=== PATIENT | female | born 1980 | race Caucasian/White ===

== ENCOUNTER 2016-09-25 17:38 | Inpatient (IN) | payer OTHER ==
[~2016-09-25] VITALS: Ht 154.9 cm; Wt 77.0 kg
[2016-09-25] MEDS ORDERED: DIPHTH/TETANUS/ACEL PERTUSSIS (BOOSTER) 0.5 ML VIAL/PFS IM ONE ×2 (17:46→18:31)
[2016-09-25] MEDS ORDERED: ONDANSETRON HCL 4 MG/2 ML VIAL ONE (17:46)
[2016-09-25] MEDS ORDERED: MORPHINE SULFATE 8 MG/ML INJ ONE ×2 (17:46→18:28)
[2016-09-25 18:04] VITALS: O2SAT 100
[2016-09-25] MEDS ORDERED: IOHEXOL 350 MG/ML 10 ML VIAL (for RAD DIAG) IV ONE (18:09)
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
[2016-09-25 18:16] LABS: I-STAT POTASSIUM 3.3 MMOL/L (3.5-4.9)
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
[2016-09-25 18:33] LABS: PROTHROMBIN TIME - PATIENT 11.3 SEC (9.8-11.6)
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
[2016-09-25 18:37] LABS: AUTOMATED NEUTROPHIL # 9.9 TH/MM3 (1.8-7.7); BASOPHIL % 0.2 % (0.0-2.0); EOSINOPHIL % 0.3 % (0.0-4.0); HEMATOCRIT 34.6 % (35.0-46.0); HEMO FLAGS DIFF FINAL; LYMPH % 13.7 % (9.0-44.0); LYMPHOCYTE # 1.7 TH/MM3 (1.0-4.8); MEAN CELL VOLUME 85.9 FL (80.0-100.0); MEAN CORPUSCULAR HEMOGLOBIN 28.3 PG (27.0-34.0); MONO % 4.1 % (0.0-8.0); NEUT % 81.7 % (16.0-70.0); PLATELET COUNT 266 TH/MM3 (150-450); RED BLOOD COUNT 4.03 MIL/MM3 (4.00-5.30); RED CELL DISTRIBUTION WIDTH 13.6 % (11.6-17.2); WHITE BLOOD COUNT 12.1 TH/MM3 (4.0-11.0)
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
[2016-09-25] MEDS ORDERED: CHLORHEXIDINE GLUCONATE 2 % 1 PACK (2 CLOTHS) TOP PRN ×2 (18:45→22:00)
[2016-09-25] MEDS ORDERED: ONDANSETRON HCL 4 MG/2 ML VIAL IV ONE (18:45)
[2016-09-25] MEDS ORDERED: MISCELLANEOUS NURSING INFORMATION XX SCH ×2 (18:45→22:00)
[2016-09-25] MEDS ORDERED: SODIUM CHLORIDE 0.9% FLUSH 5 ML FLUSH IV FLUSH PRN ×2 (18:45→22:00)
[2016-09-25] MEDS ORDERED: ONDANSETRON HCL 4 MG/2 ML VIAL IV PRN ×2 (18:45→22:00)
[2016-09-25] MEDS ORDERED: MORPHINE SULFATE 4 MG/ML INJ IV ONE (18:45)
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
[2016-09-25] MEDS: HYDROmorphone HCL PF 1 MG/ML VIAL IV PRN (19:24)
[2016-09-25] MEDS: SODIUM CHLOR 0.9% 1000 ML INJ 1,000 ML IV SCH (19:24)
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
[2016-09-25] MEDS ORDERED: cefTRIAXone INJ 1,000 MG in SODIUM CHLORIDE 0.9% INJ 100 ML IV ONE (19:30)
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
[2016-09-25 20:15] VITALS: BP 136/69; PULSE 102; RESP 16; TEMP 98.9; O2SAT 100
[2016-09-25] MEDS: SODIUM CHLORIDE 0.9% FLUSH 5 ML FLUSH IV FLUSH SCH (21:00)
[2016-09-25] MEDS ORDERED: NITROGLYCERIN 2% OINT 1 GM PACKET TOPICAL PRN (21:45)
[2016-09-25] MEDS ORDERED: hydrALAZINE HCL 20 MG/ML VIAL IV PUSH PRN (21:45)
[2016-09-25] MEDS ORDERED: LABETALOL HCL 100 MG/20 ML VIAL IV PUSH PRN (21:45)
[2016-09-25 21:46] VITALS: O2SAT 100
[2016-09-25] MEDS ORDERED: AMIT25TA9 PO (21:54)
[2016-09-25 22:00] VITALS: PULSE 110
[2016-09-25] MEDS ORDERED: POTASSIUM PHOSPHATE INJ 30 MMOL in SODIUM CHLOR 0.9% 250 ML INJ 250 ML IV PRN (22:00)
[2016-09-25] MEDS ORDERED: levETIRAcetam INJ 500 MG in SODIUM CHLORIDE 0.9% INJ 100 ML IV ONE (22:00)
[2016-09-25] MEDS ORDERED: RESP: ALBUTEROL 2.5 MG/IPRATROPIUM 0.5 MG NEB (PRN) INH (22:00)
[2016-09-25] MEDS ORDERED: MAGNESIUM SULFATE INJ 2 GM in SODIUM CHLORIDE 0.9% INJ 96 ML IV PRN (22:00)
[2016-09-25] MEDS ORDERED: POTASSIUM PHOSPHATE MONOBASIC 500 MG TAB PO/TUBE PRN (22:00)
[2016-09-25] MEDS ORDERED: POTASSIUM CHLOR 20 MEQ PREMIX 100 ML IV PRN ×2 (22:00)
[2016-09-25] MEDS ORDERED: MAGNESIUM OXIDE 400 MG TAB PO PRN (22:00)
[2016-09-25] MEDS ORDERED: MAGNESIUM SULFATE INJ 4 GM in SODIUM CHLORIDE 0.9% INJ 92 ML IV PRN (22:00)
[2016-09-25] MEDS ORDERED: POTASSIUM CHLOR 40 MEQ PREMIX 100 ML IV PRN ×2 (22:00)
[2016-09-25] MEDS ORDERED: SODIUM PHOSPHATE INJ 30 MMOL in SODIUM CHLOR 0.9% 250 ML INJ 240 ML IV PRN (22:00)
[2016-09-25] MEDS ORDERED: POTASSIUM PHOSPHATE MONOBASIC 500 MG TAB PO PRN (22:00)
[2016-09-25] MEDS: ACETAMINOPHEN 325 MG TAB PO PRN (22:11)
[2016-09-25] MEDS: AMPICILLIN-SULBACTAM INJ 3 GM in SODIUM CHLORIDE 0.9% INJ 100 ML IV SCH (22:12)
[2016-09-26] VITALS (11 sets, daily range): BP systolic 137–168; BP diastolic 64–74; PULSE 73–114; RESP 12–30; TEMP 98.5–99.5; O2SAT 97–100
[2016-09-26] MEDS: AMPICILLIN-SULBACTAM INJ 3 GM in SODIUM CHLORIDE 0.9% INJ 100 ML IV SCH ×4 (03:09→20:37)
[2016-09-26] MEDS: SODIUM CHLOR 0.9% 1000 ML INJ 1,000 ML IV SCH ×2 (03:09→18:23)
[2016-09-26] MEDS: CHLORHEXIDINE GLUCONATE 2 % 1 PACK (2 CLOTHS) TOP SCH (03:09)
[2016-09-26] MEDS: ACETAMINOPHEN 325 MG TAB PO PRN ×3 (03:10→20:37)
[2016-09-26] MEDS ORDERED: CHLORHEXIDINE GLUCONATE 2 % 1 PACK (2 CLOTHS) TOP SCH (04:00)
[2016-09-26 04:20] LABS: AUTOMATED NEUTROPHIL # 7.4 TH/MM3 (1.8-7.7); BASOPHIL % 0.1 % (0.0-2.0); HEMATOCRIT 32.9 % (35.0-46.0); HEMO FLAGS DIFF FINAL; LYMPH % 8.5 % (9.0-44.0); LYMPHOCYTE # 0.7 TH/MM3 (1.0-4.8); MEAN CORPUSCULAR HEMOGLOBIN 28.9 PG (27.0-34.0); NEUT % 87.4 % (16.0-70.0); PLATELET COUNT 248 TH/MM3 (150-450); RED BLOOD COUNT 3.87 MIL/MM3 (4.00-5.30); RED CELL DISTRIBUTION WIDTH 13.8 % (11.6-17.2); WHITE BLOOD COUNT 8.5 TH/MM3 (4.0-11.0)
[2016-09-26] MEDS ORDERED: ATROPINE SULFATE 1 MG/10 ML SYRINGE ONE (05:17)
[2016-09-26] MEDS ORDERED: LIDOCAINE HCL 2% 100 MG/5 ML SYRINGE ONE (05:17)
[2016-09-26] MEDS ORDERED: EPINEPHrine HCL (1:10,000) 1 MG/10 ML SYRINGE ONE (05:17)
[2016-09-26] MEDS: HYDROmorphone HCL PF 1 MG/ML VIAL IV PRN ×3 (05:20→13:59)
[2016-09-26 05:21] LABS: BICARBONATE 19.6 MEQ/L (21.0-32.0); MAGNESIUM 1.9 MG/DL (1.5-2.5); POTASSIUM 3.9 MEQ/L (3.5-5.1)
--- NOTE | 2016-09-26 06:32 | RADRPT ---
EXAM DATE/TIME: 09/26/2016 06:08 [facility] COMPARISON: No previous studies available for comparison. INDICATIONS : Follow up bleed. RADIATION DOSE: 58.19 CTDIvol (mGy) MEDICAL HISTORY : None SURGICAL HISTORY : None. ENCOUNTER: Subsequent ACUITY: 1 day PAIN SCALE: 0/10 LOCATION: cranial TECHNIQUE: Multiple contiguous axial images were obtained of the head. Using automated exposure control and adj ustment of the mA and/or kV according to patient size, radiation dose was kept as low as reasonably a chievable to obtain optimal diagnostic quality images. FINDINGS: Previously described small subdural hematoma in the middle cranial fossa has focally increased to abo ut 1.5 cm in thickness with mild localized mass effect. Subarachnoid hemorrhage is also noted in the left convexity especially around the sylvian fissure. Fluid in left maxillary sinus and sphenoid sinu s as well as posterior ethmoids. No mass effect or midline shift in the level of the septum pellucidu m. CONCLUSION: 1. Focal increase in subdural hematoma in the left middle cranial fossa to about 1.5 cm in thickness. Mild localized mass effect. No midline shift. Subarachnoid hemorrhage remains over the left convexit y, especially in the sylvian fissure region. Left calvarial fracture and facial fractures unchanged. José Miguel Herrera MD on September 26, 2016 at 6:28 Board Certified Radiologist. This report was verified electronically.
[2016-09-26] MEDS: ARTIFICIAL TEARS OPTH SOLN 15 ML BTL EACH EYE SCH ×2 (08:15→13:59)
[2016-09-26] MEDS: levETIRAcetam INJ 500 MG in SODIUM CHLORIDE 0.9% INJ 100 ML IV SCH ×2 (08:15→21:00)
[2016-09-26] MEDS: LACTULOSE SYRUP 20 GM/30 ML CUP PO SCH (08:35)
[2016-09-26] MEDS: SODIUM CHLORIDE 0.9% FLUSH 5 ML FLUSH IV FLUSH SCH ×4 (09:00→20:38)
[2016-09-26] MEDS: DOCUSATE SODIUM 100 MG CAP PO SCH ×2 (09:00→20:37)
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
[2016-09-26] MEDS: THIAMINE INJ 100 MG in SODIUM CHLORIDE 0.9% INJ 100 ML IV SCH (11:00)
[2016-09-26] MEDS ORDERED: ONDANSETRON HCL 4 MG/2 ML VIAL IV PUSH ONE (12:00)
[2016-09-26] MEDS ORDERED: NEOSTIGMINE 3 MG/3 ML SYR IV ONE (12:00)
[2016-09-26] MEDS ORDERED: LACTATED RINGER'S 1000 ML INJ 1,000 ML IV ONE (12:00)
[2016-09-26] MEDS ORDERED: PROPOFOL 200 MG/20 ML AMP IV ONE (12:00)
--- NOTE | 2016-09-26 14:17 | OTSOAPIP ---
RN REQUESTS OCCUPATIONAL THERAPY TO HOLD DUE TO ELEVATED BP. SHE IS ALSO SCHEDULED FOR SURGERY TODAY. WILL REATTEMPT TOMORROW. Therapist: Brisa Gramajo OTR/L Signature on file
--- NOTE | 2016-09-26 15:32 | PD.ORT.PN ---
Subjective Subjective Remarks Left humerus pain, headache and mild right forearm pain Objective Vitals Vital Signs Date Time Temp Pulse Resp B/P Pulse Ox O2 Delivery O2 Flow Rate FiO2 09/26/16 14:00 76 09/26/16 12:00 98.6 73 12 147/68 98 09/26/16 12:00 73 09/26/16 10:47 98 Nasal Cannula 2.00 09/26/16 10:00 108 09/26/16 08:00 98.9 108 30 168/69 99 09/26/16 08:00 100 Room Air 09/26/16 08:00 108 09/26/16 06:00 92 09/26/16 04:00 99.0 100 21 137/64 97 09/26/16 04:00 100 09/26/16 02:00 110 09/26/16 00:00 99.5 114 21 151/71 100 09/26/16 00:00 114 09/25/16 22:00 110 09/25/16 21:46 100 Nasal Cannula 3.00 09/25/16 20:15 98.9 102 16 136/69 100 09/25/16 18:23 100 Nasal Cannula 2 09/25/16 18:04 100 3.00 I/O 09/25/16 09/25/16 09/25/16 09/26/16 09/26/16 09/26/16 07:00 15:00 23:00 07:00 15:00 23:00 Intake Total 1254 ml 1012 ml 750 ml Output Total 925 ml 600 ml 350 ml Balance 329 ml 412 ml 400 ml Intake Oral 40 ml IV Total 1254 ml 972 ml 750 ml Output Urine Total 925 ml 600 ml 350 ml # Bowel Movements 0 0 0 Result Diagram: 09/26/16 0334 09/26/16 0334 Other Results Laboratory Tests Test 09/25/16 17:40 Prothrombin Time 11.3 SEC (9.8-11.6) Prothromb Time International 1.0 RATIO Ratio Imaging Last [address] 09/26/16 0600 Signed Impressions: Service Date/Time: Monday, September 26, 2016 06:08 - CONCLUSION: 1. Focal increase in subdural hematoma in the left middle cranial fossa to about 1.5 cm in thickness. Mild localized mass effect. No midline shift. Subarachnoid hemorrhage remains over the left convexity, especially in the sylvian fissure region. Left calvarial fracture and facial fractures unchanged. José Miguel Herrera MD Pelvis X-Ray [id number] Signed Impressions: Service Date/Time: Sunday, September 25, 2016 17:32 - CONCLUSION: No acute fracture. Aldo Paulino MD Head CT [id number] Signed Impressions: Service Date/Time: Sunday, September 25, 2016 18:01 - CONCLUSION: 1. Small subdural hematoma along the left anterior temporal bone with small amount of gas. 2. Evidence of facial bone fractures with intraorbital emphysema on the left. There are findings that are of concern for an orbital floor fracture. 3. Subtle temporal bone fracture and left zygomatic fracture. Danilo Tello MD Chest X-Ray [id number] Signed Impressions: Service Date/Time: Sunday, September 25, 2016 17:32 - CONCLUSION: Midshaft ulnar fracture. lAdo Paulino MD Chest CT [id number] Signed Impressions: Service Date/Time: Sunday, September 25, 2016 18:08 - CONCLUSION: 1. No acute thoracic injury. 2. Splenic laceration with hemoperitoneum. 3. Large right thyroid nodule. Aldo Paulino MD Cervical Spine CT [id number] Signed Impressions: Service Date/Time: Sunday, September 25, 2016 18:01 - CONCLUSION: No fracture subluxation. Right thyroid nodule. Aldo Paulino MD Abdomen/Pelvis CT [id number] Signed Impressions: Service Date/Time: Sunday, September 25, 2016 18:08 - CONCLUSION: 1. Splenic laceration with small amount of hemoperitoneum. No extravasation of contrast to suggest active hemorrhage. Aldo Paulino MD Objective Remarks full consult dictated Assessment & Plan Problem List: (1) Left humeral fracture (2) Fracture of right ulna (3) Subdural hemorrhage Assessment and Plan Options of treatment were discussed for both the lwft ulna and right humerus Based on bone alignment and both upper extremity involvement, recommend ORIF left humerus Risks and benefits reviewed Informed consent was obtained Wai Pulido MD Sep 26, 2016 15:32
[2016-09-26] MEDS ORDERED: ceFAZolin 2 GM PREMIX 50 ML ONE (15:39)
[2016-09-26] MEDS ORDERED: GENTAMICIN SULFATE 80 MG/2 ML VIAL ONE (15:39)
[2016-09-26] MEDS ORDERED: fentaNYL CITRATE 250 MCG/5 ML AMP ONE ×2 (15:40→18:07)
[2016-09-26] MEDS ORDERED: MIDAZOLAM HCL 2 MG/2 ML VIAL ONE ×2 (15:40→18:07)
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
[2016-09-26] MEDS ORDERED: NALOXONE HCL 0.4 MG/ML AMP IV PRN (17:45)
[2016-09-26] MEDS ORDERED: SODIUM CHLORIDE 0.9% FLUSH 5 ML FLUSH IVF PRN (17:45)
[2016-09-26] MEDS ORDERED: diphenhydrAMINE HCL 25 MG CAP PO PRN (17:45)
[2016-09-26] MEDS ORDERED: Post-op Orders (for Pharmacy) MISC XX ONE (17:45)
[2016-09-26] MEDS ORDERED: MISCELLANEOUS PHARMACY INFORMATION XX ONE (17:45)
[2016-09-26] MEDS ORDERED: MISCELLANEOUS NURSING INFORMATION XX PRN (17:45)
--- NOTE | 2016-09-26 17:51 | PD.OP ---
Operative Report Preoperative Diagnosis: (1) Fracture of shaft of left humerus Postoperative Diagnosis: (1) Fracture of shaft of left humerus Procedure: Left Humerus ORIF with synthes 10 hole 3.5 plate Anesthesia: General Surgeon: Wai Pulido MD Screw Eye Assembler(s): Marko JAMES Operation and Findings: see dictation Wai Pulido MD Sep 26, 2016 17:51
[2016-09-26] MEDS ORDERED: *HYDROmorphone PF 1 MG VIAL PERIprocedural Use ONLY ONE (18:01)
--- NOTE | 2016-09-26 18:01 | RADRPT ---
EXAM DATE/TIME: 09/26/2016 17:07 [facility] COMPARISON: HUMERUS LEFT (MIN 2VWS), September 25, 2016, 17:32. INDICATIONS : Open reduction. Left humeral fracture. MEDICAL HISTORY : None. SURGICAL HISTORY : None. ENCOUNTER: Subsequent ACUITY: 2 days PAIN SCORE: Non-responsive. LOCATION: Left upper extremity FINDINGS: Multiple coned down views of the left humerus were obtained using a matrix camera and demonstrate int erval placement of a screw plate fixation device transfixing the mid humeral fracture. The fracture f ragments are in anatomic alignment. CONCLUSION: Status post open rigid internal fixation. Danilo Tello MD on September 26, 2016 at 17:59 Board Certified Radiologist. This report was verified electronically.
[2016-09-26] MEDS ORDERED: MORPHINE SULFATE 4 MG/ML INJ ONE (18:07)
[2016-09-26] MEDS: HYDROmorphone HCL PCA 6 MG/30 ML IV SCH (18:21)
[2016-09-26] MEDS: FAMOTIDINE 20 MG TAB PO SCH (20:37)
[2016-09-26] MEDS: MAGNESIUM HYDROXIDE SUSP 30 ML CUP PO SCH (20:37)
[2016-09-26] MEDS ORDERED: SODIUM CHLORIDE 0.9% FLUSH 5 ML FLUSH IVF SCH (21:00)
[2016-09-26] MEDS: PCA - TOTAL MG DILAUDID DELIVERED PER SHIFT OTHER SCH (22:00)
[2016-09-27] VITALS (11 sets, daily range): BP systolic 138–174; BP diastolic 64–79; PULSE 66–116; RESP 12–23; TEMP 96.6–98.6; O2SAT 93–100
[2016-09-27] MEDS: HYDROmorphone HCL PCA 6 MG/30 ML IV SCH ×2 (00:09→09:08)
[2016-09-27] MEDS: AMPICILLIN-SULBACTAM INJ 3 GM in SODIUM CHLORIDE 0.9% INJ 100 ML IV SCH ×4 (03:30→15:16)
[2016-09-27] MEDS: SODIUM CHLOR 0.9% 1000 ML INJ 1,000 ML IV SCH (03:30)
[2016-09-27] MEDS: CHLORHEXIDINE GLUCONATE 2 % 1 PACK (2 CLOTHS) TOP SCH (03:31)
[2016-09-27] MEDS ORDERED: EPINEPHrine HCL (1:10,000) 1 MG/10 ML SYRINGE ONE (05:31)
[2016-09-27] MEDS ORDERED: LIDOCAINE HCL 2% 100 MG/5 ML SYRINGE ONE (05:32)
[2016-09-27] MEDS ORDERED: ATROPINE SULFATE 1 MG/10 ML SYRINGE ONE (05:32)
--- NOTE | 2016-09-27 05:51 | RADRPT ---
EXAM DATE/TIME: 09/27/2016 05:35 [facility] COMPARISON: CT BRAIN W/O CONTRAST, September 26, 2016, 6:08. INDICATIONS : Follow up bleed. RADIATION DOSE: 56.35 CTDIvol (mGy) MEDICAL HISTORY : Non-responsive. SURGICAL HISTORY : Non-responsive. ENCOUNTER: Subsequent ACUITY: 2 days PAIN SCALE: Non-responsive LOCATION: cranial TECHNIQUE: Multiple contiguous axial images were obtained of the head. Using automated exposure control and adj ustment of the mA and/or kV according to patient size, radiation dose was kept as low as reasonably a chievable to obtain optimal diagnostic quality images. FINDINGS: There is no evidence for acute infarction. The left middle cranial fossa, there is a hyperdense extra -axial biconvex hematoma measuring 1.6 x 2 cm in AP and transverse dimension, not significantly argueta ed, with a small amount of adjacent subdural hemorrhage and subarachnoid hemorrhage in the region of the sylvian fissure. There is a left temporal skull fracture with a tiny locule of pneumocephalus at the site of the hematoma which is felt to represent an epidural hematoma. There is also a nondisplace d left zygomatic arch fracture, air fluid level in the left maxillary sinus, sphenoid sinuses and eth moid air cells. CONCLUSION: Left temporal skull fracture, with underlying epidural hematoma unchanged and adjacent subarachnoid a nd subdural hemorrhage. Left zygomatic arch fracture. Twin Sanchez MD on September 27, 2016 at 5:47 Board Certified Radiologist. This report was verified electronically.
[2016-09-27] MEDS: PCA - TOTAL MG DILAUDID DELIVERED PER SHIFT OTHER SCH (06:00)
[2016-09-27 07:00] LABS: HEMATOCRIT 29.7 % (35.0-46.0); MEAN CELL VOLUME 86.6 FL (80.0-100.0); MEAN CORPUSCULAR HGB CONC 33.5 % (32.0-36.0); PLATELET COUNT 178 TH/MM3 (150-450); RED BLOOD COUNT 3.43 MIL/MM3 (4.00-5.30); RED CELL DISTRIBUTION WIDTH 13.8 % (11.6-17.2); REVIEW FLAG FINAL; WHITE BLOOD COUNT 8.5 TH/MM3 (4.0-11.0)
[2016-09-27 07:22] LABS: BICARBONATE 22.8 MEQ/L (21.0-32.0); POTASSIUM 4.1 MEQ/L (3.5-5.1)
[2016-09-27 07:31] LABS: FREE T4 1.51 NG/DL (0.76-1.46)
[2016-09-27 07:44] LABS: CALCIUM-PROTEIN CORRECTED 7.9 MG/DL (8.5-10.1)
[2016-09-27] MEDS: HYDROmorphone HCL PF 1 MG/ML VIAL IV PRN ×2 (07:48→11:35)
[2016-09-27] MEDS: ACETAMINOPHEN 325 MG TAB PO PRN ×3 (07:49→21:37)
[2016-09-27] MEDS ORDERED: RESP: ALBUTEROL 0.63 MG/3 ML NEB (PRN) NEB (08:00)
[2016-09-27] MEDS: LACTULOSE SYRUP 20 GM/30 ML CUP PO SCH (08:07)
[2016-09-27] MEDS: DOCUSATE SODIUM 100 MG CAP PO SCH ×2 (08:07→21:38)
[2016-09-27] MEDS: levETIRAcetam INJ 500 MG in SODIUM CHLORIDE 0.9% INJ 100 ML IV SCH (08:08)
[2016-09-27] MEDS: THIAMINE INJ 100 MG in SODIUM CHLORIDE 0.9% INJ 100 ML IV SCH (08:08)
[2016-09-27] MEDS: SODIUM CHLORIDE 0.9% FLUSH 5 ML FLUSH IV FLUSH SCH ×3 (08:08→21:00)
[2016-09-27] MEDS ORDERED: AMITRIPTYLINE HCL 25 MG TAB PO PRN (08:15)
[2016-09-27] MEDS: POLYETHYLENE GLYCOL 17 GM PKG PO SCH (09:00)
[2016-09-27] MEDS: ARTIFICIAL TEARS OPTH SOLN 15 ML BTL EACH EYE SCH ×3 (09:00→17:35)
--- NOTE | 2016-09-27 09:01 | RADRPT ---
EXAM DATE/TIME: 09/27/2016 08:11 [facility] COMPARISON: CT THORAX W CONTRAST, September 25, 2016, 18:08. CHEST SINGLE AP, September 25, 2016, 17:32. CHEST SINGLE A P, September 25, 2016, 17:32. INDICATIONS : Shortness of breath. MEDICAL HISTORY : None. SURGICAL HISTORY : None. ENCOUNTER: Subsequent ACUITY: 3 days PAIN SCORE: 8/10 LOCATION: Bilateral chest FINDINGS: There is mild left base contusion or atelectasis. Right lung is grossly clear. There is no definite e vidence of hemothorax or pneumothorax. Cardiac contours are stable. There has been plate fixation of the visualized left uterus. CONCLUSION: Mild left base contusion or atelectasis Manuel Manning MD on September 27, 2016 at 8:55 Board Certified Radiologist. This report was verified electronically.
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
[2016-09-27] MEDS ORDERED: MORPHINE SULFATE 4 MG/ML INJ IV PRN (13:00)
[2016-09-27] MEDS ORDERED: oxyCODONE/ACETAMINOPHEN 5 MG/325 MG TAB PO PRN (13:00)
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
[2016-09-27 15:17] LABS: HEMATOCRIT 31.4 % (35.0-46.0); REVIEW FLAG FINAL
--- NOTE | 2016-09-27 19:30 | PD.ORT.PN ---
Subjective Subjective Remarks Patient c/o left arm pain. Denies pain to right arm. Family at bedside. Objective Vitals Vital Signs Date Time Temp Pulse Resp B/P Pulse Ox O2 Delivery O2 Flow Rate FiO2 09/27/16 18:00 96.6 108 19 148/73 96 09/27/16 17:14 20 09/27/16 17:11 20 09/27/16 16:00 98.3 88 20 144/75 95 09/27/16 16:00 88 09/27/16 14:20 25 09/27/16 12:00 98.2 84 22 149/64 96 09/27/16 12:00 84 09/27/16 10:00 98 09/27/16 09:38 22 09/27/16 09:08 25 09/27/16 09:06 93 21 09/27/16 08:00 80 09/27/16 08:00 98.3 82 23 153/72 99 09/27/16 07:00 95 Room Air 09/27/16 06:00 66 09/27/16 04:00 98.6 84 12 144/71 100 09/27/16 04:00 84 09/27/16 02:00 74 09/27/16 00:00 98.6 68 16 138/65 98 09/27/16 00:00 68 09/26/16 22:00 82 09/26/16 20:44 98 Nasal Cannula 3.00 09/26/16 20:00 98.5 102 20 151/74 100 09/26/16 20:00 102 I/O 09/26/16 09/26/16 09/26/16 09/27/16 09/27/16 09/27/16 06:59 14:59 22:59 06:59 14:59 22:59 Intake Total 1012 ml 750 ml 1679 ml 1023 ml 1252 ml Output Total 600 ml 350 ml 990 ml 350 ml 500 ml Balance 412 ml 400 ml 689 ml 673 ml 752 ml Intake Oral 40 ml 250 ml 300 ml 600 ml IV Total 972 ml 750 ml 429 ml 723 ml 652 ml Other 1000 ml Output Urine Total 600 ml 350 ml 940 ml 350 ml 500 ml Estimated Blood Loss 50 ml # Bowel Movements 0 0 0 0 0 Result Diagram: 09/27/16 1430 09/27/16 0620 Imaging Last [address] 09/26/16 0600 Signed Impressions: Service Date/Time: Monday, September 26, 2016 06:08 - CONCLUSION: 1. Focal increase in subdural hematoma in the left middle cranial fossa to about 1.5 cm in thickness. Mild localized mass effect. No midline shift. Subarachnoid hemorrhage remains over the left convexity, especially in the sylvian fissure region. Left calvarial fracture and facial fractures unchanged. José Miguel Herrera MD Pelvis X-Ray 09/25/161746 Signed Impressions: Service Date/Time: Sunday, September 25, 2016 17:32 - CONCLUSION: No acute fracture. Aldo Paulino MD Head CT [id number]/161746 Signed Impressions: Service Date/Time: Sunday, September 25, 2016 18:01 - CONCLUSION: 1. Small subdural hematoma along the left anterior temporal bone with small amount of gas. 2. Evidence of facial bone fractures with intraorbital emphysema on the left. There are findings that are of concern for an orbital floor fracture. 3. Subtle temporal bone fracture and left zygomatic fracture. Danilo Tello MD Chest X-Ray [id number]/25/161746 Signed Impressions: Service Date/Time: Sunday, September 25, 2016 17:32 - CONCLUSION: Midshaft ulnar fracture. Aldo Paulino MD Chest CT 09/25/161746 Signed Impressions: Service Date/Time: Sunday, September 25, 2016 18:08 - CONCLUSION: 1. No acute thoracic injury. 2. Splenic laceration with hemoperitoneum. 3. Large right thyroid nodule. Aldo Paulino MD Cervical Spine CT 09/25/161746 Signed Impressions: Service Date/Time: Sunday, September 25, 2016 18:01 - CONCLUSION: No fracture subluxation. Right thyroid nodule. Aldo Paulino MD Abdomen/Pelvis CT 09/25/161746 Signed Impressions: Service Date/Time: Sunday, September 25, 2016 18:08 - CONCLUSION: 1. Splenic laceration with small amount of hemoperitoneum. No extravasation of contrast to suggest active hemorrhage. Aldo Paulino MD Objective Remarks Left arm dressing C/D/I sling in place 2+ radial pulse good movement of fingers + sensation Right arm splint in place 2+ radial pulse good movement of fingers + sensation Assessment & Plan Problem List: (1) Left humeral fracture (2) Fracture of right ulna (3) Subdural hemorrhage Assessment and Plan POD #1 ORIF of left humerus PLAN: Continue nonoperative management to right ulna fracture. Pain management Physical therapy - Non weight bearing to [place], Active assistive ROM D/C Planning - anticipating home Monitor Marko Duran Sep 27, 2016 19:30
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
[2016-09-27] MEDS ORDERED: levETIRAcetam 500 MG TAB PO SCH (21:00)
[2016-09-27] MEDS: FAMOTIDINE 20 MG TAB PO SCH (21:38)
[2016-09-27] MEDS: MAGNESIUM HYDROXIDE SUSP 30 ML CUP PO SCH (21:38)
[2016-09-27] MEDS: levETIRAcetam 500 MG TAB PO SCH (21:46)
[2016-09-27] MEDS: AMOXICILLIN/CLAVULANATE K 500 MG TAB PO SCH (23:25)
[2016-09-27] MEDS: oxyCODONE/ACETAMINOPHEN 5 MG/325 MG TAB PO PRN (23:25)
[2016-09-28] VITALS: BP 143/70; PULSE 102; RESP 20; TEMP 98.2; O2SAT 96
[2016-09-28] MEDS: CHLORHEXIDINE GLUCONATE 2 % 1 PACK (2 CLOTHS) TOP SCH (03:29)
[2016-09-28] MEDS: oxyCODONE/ACETAMINOPHEN 5 MG/325 MG TAB PO PRN ×5 (03:42→22:29)
[2016-09-28 04:00] VITALS: BP 146/70; PULSE 106; RESP 20; TEMP 96.1; O2SAT 95
[2016-09-28 05:16] LABS: BASOPHIL % 0.2 % (0.0-2.0); EOSINOPHIL # 0.1 TH/MM3 (0-0.4); EOSINOPHIL % 1.3 % (0.0-4.0); HEMATOCRIT 31.5 % (35.0-46.0); HEMO FLAGS DIFF FINAL; LYMPH % 36.1 % (9.0-44.0); LYMPHOCYTE # 3.2 TH/MM3 (1.0-4.8); MEAN CORPUSCULAR HEMOGLOBIN 29.6 PG (27.0-34.0); MEAN CORPUSCULAR HGB CONC 34.4 % (32.0-36.0); MONO % 5.4 % (0.0-8.0); PLATELET COUNT 164 TH/MM3 (150-450); RED BLOOD COUNT 3.66 MIL/MM3 (4.00-5.30); RED CELL DISTRIBUTION WIDTH 13.6 % (11.6-17.2); WHITE BLOOD COUNT 8.8 TH/MM3 (4.0-11.0)
[2016-09-28 05:48] LABS: ALKALINE PHOSPHATASE 90 U/L (45-117); ALT (GPT) 31 U/L (10-53); ANION GAP 9 MEQ/L (5-15); AST (GOT) 32 U/L (15-37); BICARBONATE 24.4 MEQ/L (21.0-32.0); BLOOD UREA NITROGEN 8 MG/DL (7-18); CHLORIDE 106 MEQ/L (98-107); GLOMERULAR FILTRATION RATE 100 ML/MIN (>89); MAGNESIUM 2.3 MG/DL (1.5-2.5); POTASSIUM 3.6 MEQ/L (3.5-5.1); SODIUM (NA) 139 MEQ/L (136-145); TOTAL BILIRUBIN ADULT 0.3 MG/DL (0.2-1.0)
[2016-09-28 08:00] VITALS: BP 170/75; PULSE 82; RESP 19; TEMP 97.5; O2SAT 95
[2016-09-28] MEDS: levETIRAcetam 500 MG TAB PO SCH ×2 (08:01→20:57)
[2016-09-28] MEDS: POLYETHYLENE GLYCOL 17 GM PKG PO SCH (08:01)
[2016-09-28] MEDS: LACTULOSE SYRUP 20 GM/30 ML CUP PO SCH (08:01)
[2016-09-28] MEDS: DOCUSATE SODIUM 100 MG CAP PO SCH ×2 (08:01→20:57)
--- NOTE | 2016-09-28 08:23 | PD.ORT.PN ---
Subjective Subjective Remarks Left humerus pain, headache and mild right forearm pain Objective Vitals Vital Signs Date Time Temp Pulse Resp B/P Pulse Ox O2 Delivery O2 Flow Rate FiO2 09/28/16 04:00 96.1 106 20 146/70 95 09/28/16 00:00 98.2 102 20 143/70 96 09/27/16 20:00 98.3 116 21 174/79 96 09/27/16 18:00 96.6 108 19 148/73 96 09/27/16 17:14 20 09/27/16 17:11 20 09/27/16 16:00 98.3 88 20 144/75 95 09/27/16 16:00 88 09/27/16 14:20 25 09/27/16 12:00 98.2 84 22 149/64 96 09/27/16 12:00 84 09/27/16 10:00 98 09/27/16 09:38 22 09/27/16 09:08 25 09/27/16 09:06 93 21 I/O 09/27/16 09/27/16 09/27/16 09/28/16 09/28/16 09/28/16 07:00 15:00 23:00 07:00 15:00 23:00 Intake Total 1023 ml 1252 ml 240 ml 180 ml Output Total 350 ml 500 ml 500 ml Balance 673 ml 752 ml 240 ml -320 ml Intake Oral 300 ml 600 ml 240 ml 180 ml IV Total 723 ml 652 ml 0 ml 0 ml Output Urine Total 350 ml 500 ml 500 ml # Voids 0 # Bowel Movements 0 0 0 0 Result Diagram: 09/28/1644609/28/16446 Imaging Last [address] 09/26/16 0600 Signed Impressions: Service Date/Time: Monday, September 26, 2016 06:08 - CONCLUSION: 1. Focal increase in subdural hematoma in the left middle cranial fossa to about 1.5 cm in thickness. Mild localized mass effect. No midline shift. Subarachnoid hemorrhage remains over the left convexity, especially in the sylvian fissure region. Left calvarial fracture and facial fractures unchanged. José Miguel Herrera MD Pelvis X-Ray 09/25/16 6664 Signed Impressions: Service Date/Time: Sunday, September 25, 2016 17:32 - CONCLUSION: No acute fracture. Aldo Paulino MD Head CT [id number]/161746 Signed Impressions: Service Date/Time: Sunday, September 25, 2016 18:01 - CONCLUSION: 1. Small subdural hematoma along the left anterior temporal bone with small amount of gas. 2. Evidence of facial bone fractures with intraorbital emphysema on the left. There are findings that are of concern for an orbital floor fracture. 3. Subtle temporal bone fracture and left zygomatic fracture. Danilo Tello MD Chest X-Ray 09/25/161746 Signed Impressions: Service Date/Time: Sunday, September 25, 2016 17:32 - CONCLUSION: Midshaft ulnar fracture. Aldo Paulino MD Chest CT 09/25/161746 Signed Impressions: Service Date/Time: Sunday, September 25, 2016 18:08 - CONCLUSION: 1. No acute thoracic injury. 2. Splenic laceration with hemoperitoneum. 3. Large right thyroid nodule. Aldo Paulino MD Cervical Spine CT 09/25/161746 Signed Impressions: Service Date/Time: Sunday, September 25, 2016 18:01 - CONCLUSION: No fracture subluxation. Right thyroid nodule. Aldo Paulino MD Abdomen/Pelvis CT [id number]/25/161746 Signed Impressions: Service Date/Time: Sunday, September 25, 2016 18:08 - CONCLUSION: 1. Splenic laceration with small amount of hemoperitoneum. No extravasation of contrast to suggest active hemorrhage. Aldo Paulino MD Objective Remarks Left arm dressing C/D/I sling in place 2+ radial pulse good movement of fingers + sensation Right arm splint in place 2+ radial pulse good movement of fingers + sensation Assessment & Plan Ortho Post Op Day #: 2 Problem List: (1) Left humeral fracture (2) Fracture of right ulna (3) Subdural hemorrhage Assessment and Plan POD #2 ORIF of left humerus PLAN: Continue nonoperative management to right ulna fracture. Pain management Physical therapy - Non weight bearing to RUE and LUE, Active assistive ROM D/C Planning - anticipating home soon new splint right upper extremity f/u in 2 weeks Wai Pulido MD Sep 28, 2016 08:23
[2016-09-28] MEDS: SODIUM CHLORIDE 0.9% FLUSH 5 ML FLUSH IV FLUSH SCH ×2 (08:45→20:58)
[2016-09-28] MEDS: THIAMINE INJ 100 MG in SODIUM CHLORIDE 0.9% INJ 100 ML IV SCH (08:45)
[2016-09-28] MEDS: ARTIFICIAL TEARS OPTH SOLN 15 ML BTL EACH EYE SCH ×3 (08:45→16:34)
[2016-09-28] MEDS: AMOXICILLIN/CLAVULANATE K 500 MG TAB PO SCH ×3 (08:46→16:37)
--- NOTE | 2016-09-28 09:49 | RADRPT ---
EXAM DATE/TIME: 09/28/2016 09:14 [place] COMPARISON: CT BRAIN W/O CONTRAST, September 27, 2016, 5:35. INDICATIONS : Patient has severe head pain . RADIATION DOSE: 35.43 CTDIvol (mGy) MEDICAL HISTORY : None SURGICAL HISTORY : None. ENCOUNTER: Initial ACUITY: 1 day PAIN SCALE: 10/10 LOCATION: cranial TECHNIQUE: Multiple contiguous axial images were obtained of the head. Using automated exposure control and adj ustment of the mA and/or kV according to patient size, radiation dose was kept as low as reasonably a chievable to obtain optimal diagnostic quality images. FINDINGS: CEREBRUM: The ventricles are normal for age. Subdural hemorrhage is again identified in the anterior aspect of the left middle cranial fossa. This is definitely no smaller and may actually be slightly larger when compared to the prior previously measuring 2.0 x 1.6 cm and now measuring 2.2 x 1.7 cm. No additiona l areas of hemorrhage identified. Ventricles are midline. POSTERIOR FOSSA: The cerebellum and brainstem are intact. The 4th ventricle is midline. The cerebellopontine angle i s unremarkable. EXTRACRANIAL: The visualized portion of the orbits is intact. Opacification of the sphenoid sinuses and the posteri or left ethmoid air cells with high density fluid probably represents hemorrhage. This is stable. SKULL: Nondisplaced fracture through the left zygomatic arch and left temporal bone with some diastases of t he left lambdoid suture. CONCLUSION: 1. Subdural hemorrhage in the anterior aspect of the left intracranial fossa is definitely smaller no w to be slightly larger when compared to prior exam. This does appear to be isolated, however. 2. High density fluid in both sphenoid sinuses in the posterior left ethmoid air cell probably repres ents some intrasinus hemorrhage associated with recent trauma. This is stable.3. Nondisplaced fractur e through the left zygomatic arch, left temporal bone and diastases of the left lambdoid suture again , all stable. Morales Farfan MD on September 28, 2016 at 9:42 Board Certified Radiologist. This report was verified electronically.
[2016-09-28] MEDS: GABAPENTIN 300 MG CAP PO SCH ×3 (10:22→16:36)
[2016-09-28 12:00] VITALS: BP 166/79; PULSE 85; RESP 16; TEMP 98.3; O2SAT 94
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
[2016-09-28 16:00] VITALS: BP 143/83; PULSE 107; RESP 18; TEMP 97.3; O2SAT 97
--- NOTE | 2016-09-28 16:11 | HHI.PR ---
Subjective Subjective Notes Complains of headache. Denies nausea or vomiting. Asking about her repeat CT brain results from today. Objective Vitals/I&O Vital Signs Date Time Temp Pulse Resp B/P Pulse Ox O2 Delivery O2 Flow Rate FiO2 09/28/16 12:00 98.3 85 16 166/79 94 09/28/16 10:07 Nasal Cannula 09/27/16 09:06 21 09/26/16 20:44 3.00 Labs Laboratory Tests Test 09/28/16 04:47 White Blood Count 8.8 Red Blood Count 3.66 Hemoglobin 10.8 Hematocrit 31.5 Mean Corpuscular Volume 86.0 Mean Corpuscular Hemoglobin 29.6 Mean Corpuscular Hemoglobin 34.4 Concent Red Cell Distribution Width 13.6 Platelet Count 164 Mean Platelet Volume 7.8 Neutrophils (%) (Auto) 57.0 Lymphocytes (%) (Auto) 36.1 Monocytes (%) (Auto) 5.4 Eosinophils (%) (Auto) 1.3 Basophils (%) (Auto) 0.2 Neutrophils # (Auto) 5.0 Lymphocytes # (Auto) 3.2 Monocytes # (Auto) 0.5 Eosinophils # (Auto) 0.1 Basophils # (Auto) 0.0 CBC Comment DIFF FINAL Differential Comment Sodium Level 139 Potassium Level 3.6 Chloride Level 106 Carbon Dioxide Level 24.4 Anion Gap 9 Blood Urea Nitrogen 8 Creatinine 0.67 Estimat Glomerular Filtration 100 Rate Random Glucose 97 Calcium Level 8.3 Phosphorus Level 1.2 Magnesium Level 2.3 Total Bilirubin 0.3 Aspartate Amino Transf 32 (AST/SGOT) Alanine Aminotransferase 31 (ALT/SGPT) Alkaline Phosphatase 90 Total Protein 6.4 Albumin 2.9 Radiology Last Impressions Head CT 09/28/16 0000 Signed Impressions: Service Date/Time: Wednesday, September 28, 2016 09:14 - CONCLUSION: 1. Subdural hemorrhage in the anterior aspect of the left intracranial fossa is definitely smaller now to be slightly larger when compared to prior exam. This does appear to be isolated, however. 2. High density fluid in both sphenoid sinuses in the posterior left ethmoid air cell probably represents some intrasinus hemorrhage associated with recent trauma. This is stable. 3. Nondisplaced fracture through the left zygomatic arch, left temporal bone and diastases of the left lambdoid suture again, all stable. Morales Farfan MD Chest X-Ray 09/27/16 0000 Signed Impressions: Service Date/Time: Tuesday, September 27, 2016 08:11 - CONCLUSION: Mild left base contusion or atelectasis Manuel Manning MD Humerus X-Ray 09/26/16 0000 Signed Impressions: Service Date/Time: Monday, September 26, 2016 17:07 - CONCLUSION: Status post open rigid internal fixation. Danilo Tello MD Pelvis X-Ray [id number]/25/161746 Signed Impressions: Service Date/Time: Sunday, September 25, 2016 17:32 - CONCLUSION: No acute fracture. Aldo Paulino MD Chest CT [id number]/161746 Signed Impressions: Service Date/Time: Sunday, September 25, 2016 18:08 - CONCLUSION: 1. No acute thoracic injury. 2. Splenic laceration with hemoperitoneum. 3. Large right thyroid nodule. Aldo Paulino MD Cervical Spine CT [id number]/161746 Signed Impressions: Service Date/Time: Sunday, September 25, 2016 18:01 - CONCLUSION: No fracture subluxation. Right thyroid nodule. Aldo Paulino MD Abdomen/Pelvis CT [id number]/161746 Signed Impressions: Service Date/Time: Sunday, September 25, 2016 18:08 - CONCLUSION: 1. Splenic laceration with small amount of hemoperitoneum. No extravasation of contrast to suggest active hemorrhage. Aldo Paulino MD Radius/Ulna X-Ray 09/25/16 Signed Impressions: Service Date/Time: Sunday, September 25, 2016 17:32 - CONCLUSION: Mid to distal shaft fracture of the olecranon. Aldo Paulino MD Maxillofacial CT 09/25/16 0000 Signed Impressions: Service Date/Time: Sunday, September 25, 2016 18:01 - CONCLUSION: 1. Subtle nondisplaced fractures of the lower left anterior and posterior maxilla 2. Nondisplaced fracture through the left zygomatic arch. 3. Small amount of intraorbital emphysema on the left with no visualized fracture of the orbit. Multiple nondisplaced left temporal bone fractures with intracranial air and subdural hematoma. Danilo Tello MD Narrative Exam GENERAL: 36-year-old well-nourished, well developed female lying in bed in no acute distress. SKIN: Warm and dry. Periorbital ecchymosis. HEAD: Atraumatic. Normocephalic. ENT: No nasal bleeding or discharge. Mucous membranes pink and moist. NECK: Trachea midline. No JVD. CARDIOVASCULAR: Regular rate and rhythm. RESPIRATORY: No accessory muscle use. Lungs clear to auscultation. Breath sounds equal bilaterally. GASTROINTESTINAL: Abdomen soft, non-tender, nondistended. + BS. MUSCULOSKELETAL: Extremities without cyanosis, or edema. Hard cast on right forearm and left shoulder. MAEW, + Sensation. NEUROLOGICAL: Awake and alert. Normal speech. A/P Assessment and Plan INJURIES: Small SDH along left temporal with small amt of gas Temporal bone fx LEFT zygomatic fx (non-op) LEFT anterior and posterior maxilla (non-op) Splenic lac without hemorrhage RIGHT ulnar fx (non-op) LEFT humerus fx RIGHT olecranon fx 09/26: LEFT humerus ORIF Diet: Regular, decreased appetite Pulm: IS, encouraged patient use. Pain: Morphine, Percocet. Activity: PT and OT evaluating. GI: Pepcid Bowel: Colace. MOM. Lactolose. Miralax. No BM yet. DVT: SCD's IV ABX: Ampicillin , Rocephin. Continue IV Keppra 7 days - prophylaxis for seizures with TBI. Neurosurgery following. Orthopedics cleared for discharge. Case management consulted to assist with discharge planning. Plan to discharge tomorrow home with home health care if NS clears. Plan of care discussed with patient and daughter at bedside. Elena Griffith Sep 28, 2016 16:11
[2016-09-28] MEDS: LISINOPRIL 20 MG TAB PO SCH (16:36)
[2016-09-28] MEDS: SUMAtriptan SUCCINATE 25 MG TAB PO PRN ×3 (16:37→20:57)
[2016-09-28 20:00] VITALS: BP 139/63; PULSE 84; RESP 20; TEMP 96.1; O2SAT 96
[2016-09-28] MEDS: MAGNESIUM HYDROXIDE SUSP 30 ML CUP PO SCH (20:57)
[2016-09-28] MEDS: FAMOTIDINE 20 MG TAB PO SCH (20:57)
[2016-09-29] VITALS: BP 142/75; PULSE 89; RESP 20; TEMP 98.2; O2SAT 97
[2016-09-29] MEDS: oxyCODONE/ACETAMINOPHEN 5 MG/325 MG TAB PO PRN ×4 (04:50→16:49)
[2016-09-29] MEDS: SUMAtriptan SUCCINATE 25 MG TAB PO PRN (05:14)
[2016-09-29 08:00] VITALS: BP 139/75; PULSE 105; RESP 12; TEMP 98.8; O2SAT 94
[2016-09-29] MEDS: POLYETHYLENE GLYCOL 17 GM PKG PO SCH (08:54)
[2016-09-29] MEDS: LISINOPRIL 20 MG TAB PO SCH (08:55)
[2016-09-29] MEDS: levETIRAcetam 500 MG TAB PO SCH (08:55)
[2016-09-29] MEDS: DOCUSATE SODIUM 100 MG CAP PO SCH (08:55)
[2016-09-29] MEDS: GABAPENTIN 300 MG CAP PO SCH ×3 (08:55→16:48)
[2016-09-29] MEDS: LACTULOSE SYRUP 20 GM/30 ML CUP PO SCH (08:55)
[2016-09-29] MEDS: SODIUM CHLORIDE 0.9% FLUSH 5 ML FLUSH IV FLUSH SCH (08:56)
[2016-09-29] MEDS: ARTIFICIAL TEARS OPTH SOLN 15 ML BTL EACH EYE SCH ×3 (08:59→18:00)
[2016-09-29] MEDS: AMOXICILLIN/CLAVULANATE K 500 MG TAB PO SCH ×3 (09:34→16:48)
[2016-09-29] MEDS ORDERED: IMIT25TA PO (11:05)
[2016-09-29] MEDS ORDERED: NEUR300C PO (11:05)
[2016-09-29] MEDS ORDERED: LISI-515 PO (11:05)
[2016-09-29] MEDS ORDERED: LEVE500 PO (11:05)
[2016-09-29] MEDS ORDERED: AUGM500T7 PO (11:05)
--- NOTE | 2016-09-29 11:07 | HHI.FF ---
Face to Face Verification Diagnosis: (1) Left humeral fracture (2) Subdural hemorrhage (3) Temporal bone fracture (4) Fracture of shaft of left humerus (5) Multiple facial fractures (6) Fracture of right ulna Physical Therapy Order: Evaluate and Treat, Improve ambulation, Strength and gait training Occupational Therapy Order: Evaluate and Treat, Gross motor coordination, Fine motor coordination Home Health Nursing Order: Nursing assessment with vital signs I have seen patient Ryan Holt on 09/29/16. My clinical findings support the need for the requested home health care services because: Limited ability to care for self High risk of falls I certify that my clinical findings support that this patient is homebound because: Unsteady gait/balance Elena Griffith Sep 29, 2016 11:07
[2016-09-29] MEDS ORDERED: PERC5TAB12 PO (11:15)
[2016-09-29 12:00] VITALS: BP 136/74; PULSE 106; RESP 16; TEMP 97.2; O2SAT 98
[2016-09-29] MEDS ORDERED: MAGNESIUM CITRATE SOLN 300 ML BTL PO ONE (12:00)
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
[2016-09-29] MEDS ORDERED: WHEEMIS3 (14:58)
[2016-09-29 16:00] VITALS: BP 155/82; PULSE 94; RESP 16; TEMP 96.3; O2SAT 98
--- NOTE | 2016-09-30 09:01 | HHI.NSPN ---
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 Sep 30, 2016 09:01
== END 2016-09-29 19:31 | disposition home health service (06) | DRG 957 ==
LOC: NEPI 17:38 → NEDA 19:17 → EDBD 19:17 → N03A 20:11 → N03B 09-26 18:34 → N07A 09-27 18:03
PROVIDERS: ADMIT Surgery Trauma Surgery; ATTEND Surgery Trauma Surgery
PROC: 0PSG04Z Reposition Left Humeral Shaft with Internal Fixation Device, Open Approach (ICD-10-PCS; principal; 2016-09-26 15:47)
DX: S42.302A Unspecified fracture of shaft of humerus, left arm, initial encounter for closed fracture (principal); S06.5X9A Traumatic subdural hemorrhage with loss of consciousness of unspecified duration, initial encounter; K66.1 Hemoperitoneum; S36.039A Unspecified laceration of spleen, initial encounter; S02.40DA Maxillary fracture, left side, initial encounter for closed fracture; S52.201A Unspecified fracture of shaft of right ulna, initial encounter for closed fracture; S02.40FA Zygomatic fracture, left side, initial encounter for closed fracture; S02.19XA Other fracture of base of skull, initial encounter for closed fracture; D64.9 Anemia, unspecified; R40.2431 Glasgow coma scale score 3-8, in the field [EMT or ambulance]; G43.909 Migraine, unspecified, not intractable, without status migrainosus; E04.1 Nontoxic single thyroid nodule; S52.021A Displaced fracture of olecranon process without intraarticular extension of right ulna, initial encounter for closed fracture; J32.0 Chronic maxillary sinusitis; D72.829 Elevated white blood cell count, unspecified; E87.6 Hypokalemia; F17.200 Nicotine dependence, unspecified, uncomplicated; F41.9 Anxiety disorder, unspecified; V29.9XXA Motorcycle rider (driver) (passenger) injured in unspecified traffic accident, initial encounter; Z88.2 Allergy status to sulfonamides
CPT/HCPCS: 29105; 29125; 70450; 70486; 71010; 71260; 72125; 72170; 73060; 73090; 74177; 76000; 76937; 80048; 80053; 80307; 82435; 82947; 82948; 83735; 84100; 84132; 84155; 84295; 84439; 84443; 84520; 85014; 85018; 85025; 85027; 85610; 85730; 86850; 86900; 86901; 87641; 90471; 90715; 94150; 96374; 96375; 96376; 99291; C1713; G0390; J0171; J0295; J0461; J0690; J0696; J1170; J1580; J1953; J2250; J2270; J2405; J2710; J3010; J3411; J7030; J7120; L0150; Q9967